=== PATIENT | female | born 1995 | race Caucasian/White ===

== ENCOUNTER → 2017-09-01 18:53 | Outpatient (CLI) | payer OTHER, SELFPAY ==
[2017-09-01 20:43] LABS: Group B Strep DNA By PCR Negative (Negative); Internal Control PASS; Probe Check PASS; Specimen Processing Control PASS
== END ==
PROVIDERS: Family Provider Family Medicine; PCP Family Medicine; Visit Provider Obstetrics & Gynecology
DX: Z36.85 Encounter for antenatal screening for Streptococcus B (principal)
CPT/HCPCS: 87081; 87653

== ENCOUNTER 2017-10-03 17:15 | Inpatient (IN) | payer OTHER, SELFPAY ==
[2017-10-03 17:50] VITALS: BMI 27.9
[2017-10-03] MEDS: 0.9% Saline Lock 10 ML Syringe IV ×2 (18:10→22:55)
[2017-10-03] MEDS: miSOPROStol 25 MCG TABLET PO ×2 (18:40→22:55)
[2017-10-03 18:50] LABS: Hematocrit 41.5 % (37-47); Hemoglobin 14.5 g/dl (12.0-15.0); Mean Corp Hgb Conc 34.9 g/gl (32-36); Mean Corpuscular Hgb 32.9 pg (27.0-32.0); Mean Corpuscular Volume 94.1 fL (81-99); Mean Platelet Vol. 9.9 fl (6.2-12.0); Platelet Count 172 K/mm3 (150-450); RBC Distribution Width CV 13.1 % (11.6-14.6); RBC Distribution Width SD 44.8 fl (35.1-43.9); Red Blood Count 4.41 M/mm3 (4.2-5.4); White Blood Count 10.8 K/mm3 (4.4-11.0)
[2017-10-03 18:58] LABS: Scan Indicated on CBC? Y/N NO
[2017-10-04] MEDS: Acetaminophen 325 MG Tablet PO (01:53)
[2017-10-04] MEDS: Ondansetron 4 MG/2 ML Vial IV (01:53)
--- NOTE | 2017-10-04 02:19 | PCM.PN.BLA ---
Progress Note 41 wk induction EFM; 130-140s avg to increased variability. Accels to 170s Sleep cycles in 120s baseline . One variable decel to 80-90s less than 60 sec, with intermittent tracing at time. Intermittent tracing UCs q 3-4 min at times. irregular CX check at 0112: 1.5/50/-2 A/P: 41 wk Cytotec induction. Category I tracing. Continue induction. Plan AROM, Pitocin
[2017-10-04] MEDS: Lactated Ringers 1,000 ML 50 ML IV ×3 (04:22→09:12)
[2017-10-04] MEDS: fentaNYL-bupivacaine (epidural) 100 ML BAG EPIDURAL (06:16)
--- NOTE | 2017-10-04 07:15 | PCM.PN.BLA ---
Progress Note LABOR PROGRESS NOTE (rounded approx 0610) Comfortable w/ epidural and hoping to rest. AVSS Last cytotec at approx 11 pm EFM: 110-120s with periods of FHR in 130-140s avg variability. Accels to 160s UCs q 3 min at times, poor pickup CX: 6-7/70/-1 last RN check with michele insertion (just prior to 7 am) A/P: 41 wk induction. Cytotec. D/C cytotec. Pitocin order given for prn to maintain UCs.
[2017-10-04] MEDS: Oxytocin 30 units/NS 500 ml 30 UNITS/500 ML IV.SOLN IV (07:30)
[2017-10-04] MEDS: Oxytocin 30 units/NS 500 ml 30 UNITS/500 ML IV.SOLN 334 UNITS IV (09:37)
[2017-10-04] MEDS: Oxytocin 30 units/NS 500 ml 30 UNITS/500 ML IV.SOLN 167 UNITS IV (10:07)
[2017-10-04] MEDS: Ibuprofen 600 MG Tablet PO ×2 (13:37→21:41)
[2017-10-04] MEDS: Senna/Docusate Sodium 1 Tablet PO (15:57)
[2017-10-04] MEDS: Prenatal Vits Tablet 1 TABLET PO (15:58)
[2017-10-04 16:00] VITALS: BP 109/65; PULSE 83; RESP 16; TEMP 37.3
[2017-10-04] MEDS: Acetaminophen 500 MG Tablet 1000 MG PO (17:11)
--- NOTE | 2017-10-04 18:33 | PCM.OB.VAG ---
Vaginal Delivery Maternal Presentation: Medically Indicated Induction 40 6/7 wk induction, Cytotec to pitocin and AROM Method of Induction: Pitocin, Amniotomy, Cytotec Medical Reason for Induction: Post term Amniotic Membrane Rupture Type: Artificial Amniotic Fluid Description: Clear Final RAJNI: 09/27/17 Gestational age: 41 Weeks and 0 Days Date of Procedure: 10/04/17 Pre-Operative Diagnosis: 41 wk Post-Operative Diagnosis: Same Surgery/ Procedure Performed: Spontaneous Vaginal Delivery Type of Anesthesia: Epidural Description of Procedure: of a nesbitt viable male over vaginal and perineal lacerations. Head delivered BISMARK. Nuchal cord x one reduced at delivery. Shoulders delivered easily. Infant to maternal abdomen with spont vigorous cry. End stage meconium noted. OP and nares bulb suctioned after delivery prior to placing baby on abdomen. Delayed cord clamping: cord then clamped x two and cut. Routine cord gas for typing collected. exam: 3rd degree perineal laceration noted. Bilateral 2nd degree vaginal wall lacerations. Placenta delivered by spont expulsion, expression. 3V cord, normal appearing and intact with trailing membranes. Repair then initiated: RN held retractor to expose apex of vaginal wall lacerations. Repaired those with 3-0 Vicryl. 3rd degree perineal laceration repaired to hemostatic and intact with interrupted stitches of 3-0 chromic then 3-0 Vicryl to hemostatic and intact. EBL 400 cc due to lacerations Ray Maryjo counts correct x two Pt and tolerated delivery well. to recovery, stable condition. Presentation: Vertex, BISMARK Placental Delivery Description: Spontaneous, Expressed Placenta Disposition: [facility] Cord Vessel Description: 3 Vessels Nuchal Cord Compression: Without compression Cord Entanglement: Around neck x 1, loose Drain: Esparza to straight drain Estimated Blood Loss: 400 Infant A gender: Male (1 minute): 8 (5 minute): 9 Episiotomy Description: None Laceration: Vaginal Extension/lac, 2nd degree - perineum: 3rd degree lacerations. Bilateral vaginal sidewall lacerations (2nd deg) Medications given after delivery: IV Pitocin Complications: None
--- NOTE | 2017-10-04 18:41 | PCM.DCVAG ---
Discharge Diet: No Restrictions Discharge Activity: May Shower, May Take a Tub Bath May resume sexual activity in: 4-6 weeks Additional Activity Instructions:: Nothing in the vagina for 4-6 weeks. You may return to work/school in 6 weeks. Additional Instructions: If you experience any of the following, contact your healthcare provider. Bleeding that soaks a pad every hour for 2 hours Fever 100.4 or higher Unrelieved abdominal pain Problems urinating (including inability to urinate or burning while urinating). Visual changes Severe headache Flu-like symptoms Pain or redness in one of both of your breasts Pain, warmth, tenderness or swelling in your legs, especially the calf area Frequent nausea and vomiting Symptoms of depression or anxiety If you experience any of the following, call 911 or go to the nearest Emergency Room. Chest pain Problems breathing Seizure activity Partial or complete paralysis of a body part, slurred speech, weakness or drooping of the face, or a sudden inability to walk or hold your balance Allergies/Adverse Reactions: Allergies No Known Allergies Allergy (Verified 10/03/17 17:51) Medications to take at Discharge Vit Calc,Iron,Folic [ Vitamins] 1 tab PO DAILY 10/03/17 Orders to be completed after discharge: Electric breast pump Time Frame: 1 Year, Location: None Selected Please Follow Up With: Qiana Deluna MD - [phone] When: Call to make an appointment with your doctor in 6 weeks. Primary Care Physician: Paddy Scales [Primary Care Provider] - Proposed Discharge Date: 10/06/17
--- NOTE | 2017-10-04 18:42 | DCINST_ITS ---
Discharge Diet: No Restrictions Discharge Activity: May Shower, May Take a Tub Bath May resume sexual activity in: 4-6 weeks Additional Activity Instructions:: Nothing in the vagina for 4-6 weeks. You may return to work/school in 6 weeks. Additional Instructions: If you experience any of the following, contact your healthcare provider. * Bleeding that soaks a pad every hour for 2 hours * Fever 100.4 or higher * Unrelieved abdominal pain * Problems urinating (including inability to urinate or burning while urinating) . * Visual changes * Severe headache * Flu-like symptoms * Pain or redness in one of both of your breasts * Pain, warmth, tenderness or swelling in your legs, especially the calf area * Frequent nausea and vomiting * Symptoms of depression or anxiety If you experience any of the following, call 911 or go to the nearest Emergency Room. * Chest pain * Problems breathing * Seizure activity * Partial or complete paralysis of a body part, slurred speech, weakness or drooping of the face, or a sudden inability to walk or hold your balance Allergies/Adverse Reactions: Allergies No Known Allergies Allergy (Verified 10/03/17 17:51) Medications to take at Discharge Vit Calc,Iron,Folic [ Vitamins] 1 tab PO DAILY 10/03/17 Orders to be completed after discharge: Electric breast pump Time Frame: 1 Year, Location: None Selected Please Follow Up With: Qiana Deluna MD - [phone] When: Call to make an appointment with your doctor in 6 weeks. Primary Care Physician: Paddy Scales [Primary Care Provider] - Proposed Discharge Date: 10/06/17
[2017-10-04 20:00] VITALS: BP 117/74; PULSE 82; RESP 16; TEMP 36.9
[2017-10-05 01:20] VITALS: BP 104/68; PULSE 79; RESP 16; TEMP 36.6
[2017-10-05] MEDS: Acetaminophen 500 MG Tablet 1000 MG PO ×2 (01:22→11:50)
[2017-10-05] MEDS: Senna/Docusate Sodium 1 Tablet PO ×3 (01:23→21:41)
[2017-10-05 05:55] VITALS: BP 107/69; PULSE 62; RESP 16; TEMP 36.8
--- NOTE | 2017-10-05 07:11 | PCM.PN.OB ---
Subjective: PPD#1 with 3rd deg laceration Doing well. States minimal bleeding, much less than yesterday morning. breast feeding well. No concerns voiced. Starting to get a little more painful at bottom. - Physical Exam General: Alert, Oriented x3, Cooperative, No apparent distress HEENT: Atraumatic Neck: Supple Abdomen: Soft - Fundus firm NT 2-3 cm inferior to umbilicus Extremities: No edema Psych/Mental Status: Normal Affect Vital Signs Temp Pulse Resp BP 97.8 F 79 16 104/68 10/05/17 01:20 10/05/17 01:20 10/05/17 01:20 10/05/17 01:20 Oxygen Delivery Method Room Air Weight: 69.3 kg Body Mass Index (BMI) 27.9 Intake and Output for Last 24 Hours 10/03/17 10/04/17 10/05/17 23:59 23:59 23:59 Intake Total 3260 / 3260 Output Total 1625 / 1625 Balance 1635 / 1635 Laboratory Tests Past 24 Hrs 10/04/17 15:50 Screen NEGATIVE Baby's Blood Type O POSITIVE Baby's FORTUNATO NEGATIVE Medical Necessity - Tobacco Use Smoking Status: Never smoker Assessment/Plan PPD#1 , 3rd degree laceration Stable . Continue routine care.
[2017-10-05 07:45] VITALS: BP 105/65; PULSE 73; RESP 18; TEMP 36.6; O2SAT 98
[2017-10-05] MEDS: Ibuprofen 600 MG Tablet PO ×2 (08:10→20:17)
[2017-10-05] MEDS: Prenatal Vits Tablet 1 TABLET PO (11:47)
[2017-10-05 14:30] VITALS: BP 97/67; PULSE 68; RESP 16; TEMP 37.2; O2SAT 98
[2017-10-05 20:05] VITALS: BP 112/75; PULSE 87; RESP 16; TEMP 36.4; O2SAT 98
[2017-10-06] MEDS: Acetaminophen 500 MG Tablet 1000 MG PO (00:14)
[2017-10-06 02:32] VITALS: BP 103/65; PULSE 70; RESP 16; TEMP 36.5; O2SAT 99
[2017-10-06] MEDS: Ibuprofen 600 MG Tablet PO (05:41)
--- NOTE | 2017-10-06 07:40 | PCM.PN.OB ---
Subjective: PPD#2 Induction of labor 40 6/7 to 41 wk. with 3rd degree Doing well. Able to rest overnight. Some pressure at perineum, but nothing bad. Notes more discomfort with cramping, nursing. - Physical Exam General: Alert, Oriented x3, Cooperative, No apparent distress HEENT: Atraumatic Neck: Supple Abdomen: Soft - Fundus firm NT inferior to umbilicus Neurological: Cranial nerves II-XII grossly intact Psych/Mental Status: Normal Affect Vital Signs Temp Pulse Resp BP Pulse Ox 97.7 F L 70 16 103/65 99 10/06/17 02:32 10/06/17 02:32 10/06/17 02:32 10/06/17 02:32 10/06/17 02:32 Oxygen Delivery Method Room Air Weight: 69.3 kg Body Mass Index (BMI) 27.9 Intake and Output for Last 24 Hours 10/04/17 10/05/17 10/06/17 23:59 23:59 23:59 Intake Total 3260 / 3260 Output Total 1625 / 1625 Balance 1635 / 1635 Medical Necessity - Tobacco Use Smoking Status: Never smoker Assessment/Plan PPD#2 , 3rd degree laceration Stable . dischg home today. RTO in 6 wk for pp check, prn sooner.
--- NOTE | 2017-10-06 07:44 | PCM.DC.SUM ---
Discharge Date and Diagnosis Date of Admission: 10/03/17 - 41 wk induction Date of Discharge: 10/06/17 - S/P 3rd deg laceration Hospital Course and Treatment Procedures: - - Induction of labor: cytotect, AROM Pitocin. Summary of Care Provided: The patient is a 22 year old female presents for induction of labor on 10/03/18 at 41 wk EGA. Cytotec induction, to AROM and pitocin resulted in with third degree vaginal laceration. course uneventful and home on PPD#2 Discharge Diet: No Restrictions Discharge Activity: May Shower, May Take a Tub Bath May resume sexual activity in: 4-6 weeks Additional Activity Instructions:: Nothing in the vagina for 4-6 weeks. You may return to work/school in 6 weeks. Home Medications: Medications to take at Discharge Vit Calc,Iron,Folic [ Vitamins] 1 tab PO DAILY 10/03/17 Other Amb Orders: Electric breast pump Time Frame: 1 Year, Location: None Selected Primary Care Physician: Paddy Scales [Primary Care Provider] - Please Follow Up With: Qiana Deluna MD - [phone] Medical Necessity - Tobacco Use Smoking Status: Never smoker Meaningful Use Info Meaningful Use Diagnoses (Choose all that apply): None applicable
[2017-10-06 09:00] VITALS: BP 102/63; PULSE 81; RESP 20; TEMP 37.3; O2SAT 98
[2017-10-06] MEDS: Senna/Docusate Sodium 1 Tablet PO (10:36)
[2017-10-06] MEDS: Prenatal Vits Tablet 1 TABLET PO (12:46)
== END 2017-10-06 14:00 | disposition home or self-care (01) | DRG 775 ==
PROVIDERS: Admitting Provider Obstetrics & Gynecology; Family Provider Family Medicine; PCP Family Medicine; Visit Provider Obstetrics & Gynecology
DX: O48.0 Post-term pregnancy (principal); O70.20 Third degree perineal laceration during delivery, unspecified; Z37.0 Single live birth; O69.81X0 Labor and delivery complicated by cord around neck, without compression, not applicable or unspecified; O77.0 Labor and delivery complicated by meconium in amniotic fluid; Z3A.41 41 weeks gestation of pregnancy
CPT/HCPCS: 59025; 59050; 85027; 85461; 86850; 86900; 86901; 90384; 99218; J7120; A4216; G0378; J2405; J2790

== ENCOUNTER 2017-10-07 11:30 | Outpatient (CLI) | payer OTHER, SELFPAY | END 2017-10-07 13:00 | disposition home or self-care (01) | LOC: WPOUT 11:40 → WP 11:40 | PROVIDERS: Family Provider Family Medicine; PCP Family Medicine; Visit Provider Obstetrics & Gynecology | DX: O92.70 Unspecified disorders of lactation (principal) | CPT/HCPCS: 96152 ==

== ENCOUNTER 2017-10-10 18:28 | Outpatient (CLI) | payer OTHER, SELFPAY | END 2017-10-10 19:42 | disposition home or self-care (01) | LOC: WPOUT 18:51 → WP 18:52 | PROVIDERS: Family Provider Family Medicine; PCP Family Medicine; Visit Provider Obstetrics & Gynecology | DX: Z39.1 Encounter for care and examination of lactating mother (principal) | CPT/HCPCS: 96152 ==

== ENCOUNTER → 2018-11-24 16:34 | Outpatient (CLI) | payer BC, SELFPAY ==
[2018-11-24 18:29] LABS: Chlamydia Trachomatis by PCR Negative (Negative); Neisserai gonorrhoeae by PCR Negative (Negative); Probe Check PASS; Sample Adequacy Control PASS; Specimen Processing Control PASS
[2018-11-29 11:34] LABS: HPV Reflexed? NOT INDICATED
== END ==
PROVIDERS: Family Provider Family Medicine; PCP Family Medicine; Referring Provider Obstetrics & Gynecology; Visit Provider Obstetrics & Gynecology
DX: Z12.4 Encounter for screening for malignant neoplasm of cervix (principal); Z11.3 Encounter for screening for infections with a predominantly sexual mode of transmission
CPT/HCPCS: 87491; 87591; 88175; G0145

== ENCOUNTER → 2018-12-15 15:19 | Outpatient (CLI) | payer BC, SELFPAY ==
[2018-12-15 17:18] LABS: Absolute Lymphocyte Count 2.14 X10^3/ul (0.83-4.51); Absolute Neutrophil Count 4.7 X10^3/uL (2.0-7.7); Basophil# 0.02 X10^3/uL; Basophil% 0.3 % (0-1); Eosinophil# 0.05 X10^3/uL; Eosinophils% 0.7 % (0-5); Hematocrit 40.4 % (37-47); Hemoglobin 14.4 g/dl (12.0-15.0); Lymphocyte # 2.14 X10^3/ul (4.0); Lymphocyte % 29.2 % (19-41); Mean Corp Hgb Conc 35.6 g/gl (32-36); Mean Corpuscular Hgb 31.3 pg (27.0-32.0); Mean Corpuscular Volume 87.8 fL (81-99); Monocyte% 5.4 % (0-10); Neutrophil # 4.73 X10^3/uL (2.7-7.7); Neutrophil % 64.4 % (47-70); Platelet Count 196 K/mm3 (150-450); RBC Distribution Width CV 11.8 % (11.6-14.6); RBC Distribution Width SD 37.6 fl (35.1-43.9); White Blood Count 7.3 K/mm3 (4.4-11.0)
[2018-12-15 17:21] LABS: POSITIVE COUNT NO; POSITIVE DIFFERENTIAL NO; POSITIVE MORPHOLOGY NO
[2018-12-15 17:29] LABS: Color, Urine Yellow (Yellow); Glucose, Dipstick Normal (Normal); Ketone-Dipstick 5 mg/dl (Negative); Leukocyte Esterase-Dipstick 100 /ul (Negative); Nitrite-Dipstick Negative (Negative); Occult Blood-Urine 10 /ul (Negative); Protein-Dipstick Negative (Negative); Specific Gravity, Urine 1.025 (1.002-1.030); Thyroid Stim Hormone (TSH) 0.85 uIU/mL (0.358-3.74); Urine Bilirubin Dipstick Negative (Negative); Urine Clarity Sl. Cloudy (Clear); Urine Urobilinogen Normal (Normal)
[2018-12-18 10:10] LABS: HIV - WCH Non-Reactive (Nonreactive); Hepatitis B Surface Antigen Non-Reactive (Nonreactive); Hepatitis C Antibody Non-Reactive (Nonreactive); Rubella IgG 35.7 IU/mL
[2018-12-22 05:48] LABS: Prenatal RPR NONREACTIVE (NONREACTIVE)
== END ==
PROVIDERS: Visit Provider Obstetrics & Gynecology
DX: Z34.81 Encounter for supervision of other normal pregnancy, first trimester (principal)
CPT/HCPCS: 36415; 81002; 84443; 85025; 86703; 86762; 86803; 87340

== ENCOUNTER → 2019-04-24 08:54 | Outpatient (CLI) | payer BC, SELFPAY ==
[2019-04-24 10:39] LABS: Hematocrit 36.1 % (37-47); Hemoglobin 12.2 g/dL (12.0-15.0); Mean Corp Hgb Conc 33.8 g/dL (32-36); Mean Corpuscular Hgb 33.2 pg (27.0-32.0); Mean Corpuscular Volume 98.1 fL (81-99); Mean Platelet Vol. 10.4 fl (6.2-12.0); Platelet Count 150 K/mm3 (150-450); RBC Distribution Width CV 12.8 % (11.6-14.6); RBC Distribution Width SD 45.6 fl (35.1-43.9); Red Blood Count 3.68 M/mm3 (4.2-5.4); White Blood Count 7.5 K/mm3 (4.4-11.0)
[2019-04-24 10:45] LABS: Glucose Challenge Gest 1H 50g 81 mg/dL (70-140)
== END ==
PROVIDERS: Visit Provider Obstetrics & Gynecology
DX: Z34.83 Encounter for supervision of other normal pregnancy, third trimester (principal)
CPT/HCPCS: 36415; 82950; 85027; 86850

== ENCOUNTER → 2019-06-28 16:30 | Outpatient (CLI) | payer BC, SELFPAY | PROVIDERS: Visit Provider Advanced Practice Midwife | DX: Z36.85 Encounter for antenatal screening for Streptococcus B (principal) | CPT/HCPCS: 87081 ==

== ENCOUNTER 2019-07-06 22:50 | Inpatient (IN) | payer BC, SELFPAY ==
[2019-07-06] MEDS: Lactated Ringers 1,000 ML 50 ML IV (23:20)
[2019-07-06] MEDS: Lactated Ringers 500 ML 999 ML IV (23:25)
[2019-07-06 23:28] VITALS: BMI 26.3
[2019-07-06 23:46] LABS: Absolute Neutrophil Count 7.9 X10^3/uL (2.0-7.7); Basophil# 0.03 X10^3/uL; Basophil% 0.3 % (0-1); Eosinophil# 0.04 X10^3/uL; Eosinophils% 0.4 % (0-5); Hematocrit 36.7 % (37-47); Hemoglobin 12.9 g/dL (12.0-15.0); Lymphocyte % 21.6 % (19-41); Mean Corp Hgb Conc 35.1 g/dL (32-36); Mean Corpuscular Hgb 32.7 pg (27.0-32.0); Mean Corpuscular Volume 92.9 fL (81-99); Mean Platelet Vol. 10.5 fl (6.2-12.0); Monocyte% 6.3 % (0-10); NRBC Flagged by Analyzer 0 % (0-5); Platelet Count 181 K/mm3 (150-450); RBC Distribution Width SD 40.2 fl (35.1-43.9); Red Blood Count 3.95 M/mm3 (4.2-5.4); White Blood Count 11.1 K/mm3 (4.4-11.0)
--- NOTE | 2019-07-06 23:55 | PCM.HP.OB ---
- Problem List (1) 38 weeks gestation of Status: Acute History Date of Admission: 07/06/19 - 41 wk induction Final RAJNI: 07/17/19 Final RAJNI Source: US <20 weeks Gestational age: 38 Weeks and 4 Days History of this : This is a 24 year-old, G [2], P [1], at 38 weeks gestational age. Allergies No Known Allergies Allergy (Verified 07/06/19 23:43) Home Medications: Home Medications Vit Calc,Iron,Folic [ Vitamins] 1 tab PO DAILY 10/03/17 Smoking Status: Never smoker Alcohol: None Number of Fetus(es): 1 NST - FHR Rate Baby A Baseline: 135 Variability:: Moderate Accelerations:: 15 x 15 Decelerations:: None NST Reactive:: Yes FHR Category:: Category I Uterine Activity:: Q3-5 min History Past Pregnancies: Past Pregnancies Delivery Date Name GA/ Weeks Outcome Route Wt Infant Sex Labor Length Anesthesia Delivery Location Provider FOB 10/04/17 41 viable vag 7.11 M 8 epidural [facility] same Labs: Mom's Labs & Results 07/06/19 07/06/19 07/06/19 23:20 23:20 23:20 WBC 11.1 H RBC 3.95 L Hgb 12.9 Hct 36.7 L MCV 92.9 MCH 32.7 H MCHC 35.1 RDW Std Deviation 40.2 RDW Coeff of Chloe 12.0 Plt Count 181 MPV 10.5 Immature Gran % (Auto) 0.400 Neut % (Auto) 71.0 H Lymph % (Auto) 21.6 Traverse % (Auto) 6.3 Eos % (Auto) 0.4 Baso % (Auto) 0.3 Absolute Neuts (auto) 7.9 H Absolute Lymphs (auto) 2.40 Nucleated RBC % 0 Blood Type O NEGATIVE Antibody Screen TNP NEGATIVE Course Did the patient receive Yes care? Labs Blood Type: O RH: NEGATIVE RPR/VDRL/Syphilis Nonreactive Rubella status Immune HbSAg Negative Date Done: 12/15/18 Chlamydia Negative Gonorrhea Negative HIV/AIDS Non-Reactive Group B Strep: Negative Current Obstetrical History Gestational Diabetes No Incompetent Cervix No Infertility No IUGR No Macrosomia No Hypertension/Pre-eclampsia No Placenta Previa/Abruption No PTL/PROM No Uterine anomaly No Oligohydramnios No Polyhydramnios No Multiple gestation No Past Medical History Asthma No Diabetes No Hypertension No Heart disease No Mitral valve prolapse No Neurologic/Seizure disorder/ No Migraines Kidney disease No Liver disease No Varicosities No Clotting disorders/Hx of DVT No Thyroid Dysfunction No Other medical diseases No Psychiatric disorders No Major trauma No Abnormal PAP smear No Sleep apnea No Mammogram in the last 2 years No Social History Marital Status: Alleged father Akbar Sesay Hx Smoking No Smoking Status Never smoker Expected Infant Delivery Method: Spontaneous Vaginal Number of Visits: 10 Review of Systems Constitutional: Denies: Chills, Fever, Weight Change HEENT: Denies: Head Aches, Sinus Congestion, Sinus Drainage Cardiovascular: Denies: Chest Pain, Palpitations Respiratory: Denies: Cough, Shortness of breath at rest, Sputum production Gastrointestinal: Denies: Abdominal Pain, Nausea, Vomiting Genitourinary: Denies: Dysuria Musculoskeletal: Denies: Joint Pain, Joint Tenderness Skin: Denies: Rash, Wounds Neurological: Denies: Numbness, Tingling, Focal weakness Psychiatric: Denies: Anxiety, Depression, Homicidal Ideations, Suicidal Ideations Hematologic/ Lymphatic: Denies: Easy Bruising, Easy Bleeding Physical Exam General: Alert, Oriented x3, No apparent distress HEENT: Atraumatic, Normocephalic. Negative for: Thyromegaly, Lymphadenopathy Cardiovascular: Regular rate, Regular Rhythm Lungs: Clear to auscultation Abdomen: Bowel Sounds Present, Gravid Neurological: Deep Tendon Reflexes 2+/4 and Symmetrical, Neuro grossly intact COMPLIANCE REVIEW OFFICER: Normal external genitalia. Negative for: Vulvar lesions Estimated gestational size: Appropriate for gestational size Presentation: Cephalic Cervix Dilation (cm): 5 - per RN Station: -2 Effacement (%): 50 Assessment/Plan All Active Problems 38 weeks gestation of (Acute) A: This is a 24 year-old, G [2], P [1], at 38 weeks gestational age. FHR baseline 135, + accels, - decels, moderate variability, reactive Category I tracing UC Q3-5 minutes SVE 5/50/-3 P: Admit for active labor Epidural for pain management Expect
[2019-07-07] MEDS: fentaNYL-bupivacaine (epidural) 100 ML BAG EPIDURAL (00:45)
[2019-07-07] MEDS: Oxytocin 30 units/NS 500 ml 30 UNITS/500 ML IV.SOLN 334 UNITS IV (04:10)
--- NOTE | 2019-07-07 05:29 | PCM.OPRPT ---
Problem List (1) 38 weeks gestation of Status: Acute Vaginal Delivery Maternal Presentation: Active Labor Amniotic Membrane Rupture Type: Artificial - at complete Rupture of Membrane time: 334 Amniotic Fluid Description: Clear Final RAJNI: 07/17/19 Final RAJNI Source: US <20 weeks Gestational age: 38 Weeks and 4 Days Date of Procedure: 07/07/19 Pre-Operative Diagnosis: 38 weeks gestation/labor Post-Operative Diagnosis: S/P Surgery/ Procedure Performed: Spontaneous Vaginal Delivery Type of Anesthesia: Epidural Description of Procedure: Called to delivery when patient 10/100/0 station with bulging bag of fluid. After discussion AROM with clear fluid. Pushed well with epidural in place. Delivered viable male OA to ABRAHAM, Apgars 8/9. 2nd degree vaginal extension/perineal laceration repaired with a 3.0 vicryl and a 3.0 rapide. EBL 150. All counts correct with RN x2. Presentation: Vertex, BARAHAM Placental Delivery Description: Spontaneous Placenta Disposition: [facility] Cord Vessel Description: 3 Vessels Cord Entanglement: None Estimated Blood Loss: 150 A gender: Male (1 minute): 8 (5 minute): 9 Episiotomy Description: None Laceration: Perineal Extension/lac, Vaginal Extension/lac, 2nd degree Medications given after delivery: IV Pitocin
--- NOTE | 2019-07-07 05:35 | DCINST_ITS ---
Discharge Diet: No Restrictions Discharge Activity: Return to Normal Activity, May not drive while taking narcotic pain medications., May Shower May resume sexual activity in: - - One week after bleeding has stopped and laceration heals Call your doctor if your incision/area has: Continuous Slow Oozing, Sudden Increased Bleeding, Increased Pain/ Swelling, Increased Redness, Foul Smelling Discharge Additional Instructions: If you experience any of the following, contact your healthcare provider. * Bleeding that soaks a pad every hour for 2 hours * Fever 100.4 or higher * Unrelieved incision or abdominal pain * Swelling, redness, discharge or bleeding from your incision or episiotomy site * Your incision begins to separate * Problems urinating (including inability to urinate or burning while urinating). * Visual changes * Severe headache * Flu-like symptoms * Pain or redness in one of both of your breasts * Pain, warmth, tenderness or swelling in your legs, especially the calf area * Frequent nausea and vomiting * Symptoms of depression or anxiety If you experience any of the following, call 911 or go to the nearest Emergency Room. * Chest pain * Problems breathing * Seizure activity * Partial or complete paralysis of a body part, slurred speech, weakness or drooping of the face, or a sudden inability to walk or hold your balance Allergies/Adverse Reactions: Allergies No Known Allergies Allergy (Verified 07/06/19 23:43) Medications to take at Discharge Vit Calc,Iron,Folic [ Vitamins] 1 tab PO DAILY 10/03/17 Please Follow Up With: Roseline Maria CNM When: Call to make an appointment with your doctor in 6 weeks. If you have signs of depression please call for a 2 week follow up. Test Results: Test results from this visit will be discussed in further detail at your follow- up appointment, if applicable.
--- NOTE | 2019-07-07 05:35 | PCM.DCVAG ---
Discharge Diet: No Restrictions Discharge Activity: Return to Normal Activity, May not drive while taking narcotic pain medications., May Shower May resume sexual activity in: - - One week after bleeding has stopped and laceration heals Call your doctor if your incision/area has: Continuous Slow Oozing, Sudden Increased Bleeding, Increased Pain/ Swelling, Increased Redness, Foul Smelling Discharge Additional Instructions: If you experience any of the following, contact your healthcare provider. Bleeding that soaks a pad every hour for 2 hours Fever 100.4 or higher Unrelieved incision or abdominal pain Swelling, redness, discharge or bleeding from your incision or episiotomy site Your incision begins to separate Problems urinating (including inability to urinate or burning while urinating). Visual changes Severe headache Flu-like symptoms Pain or redness in one of both of your breasts Pain, warmth, tenderness or swelling in your legs, especially the calf area Frequent nausea and vomiting Symptoms of depression or anxiety If you experience any of the following, call 911 or go to the nearest Emergency Room. Chest pain Problems breathing Seizure activity Partial or complete paralysis of a body part, slurred speech, weakness or drooping of the face, or a sudden inability to walk or hold your balance Allergies/Adverse Reactions: Allergies No Known Allergies Allergy (Verified 07/06/19 23:43) Medications to take at Discharge Vit Calc,Iron,Folic [ Vitamins] 1 tab PO DAILY 10/03/17 Please Follow Up With: Roseline Maria CNM When: Call to make an appointment with your doctor in 6 weeks. If you have signs of depression please call for a 2 week follow up. Test Results: Test results from this visit will be discussed in further detail at your follow-up appointment, if applicable.
[2019-07-07] MEDS: Ibuprofen 600 MG Tablet PO ×3 (06:47→19:55)
[2019-07-07 08:00] VITALS: BP 102/68; PULSE 87; RESP 16; TEMP 37.1
[2019-07-07 12:15] VITALS: BP 105/71; PULSE 74; RESP 16; TEMP 36.9
[2019-07-07 19:56] VITALS: BP 102/59; PULSE 84; RESP 14; TEMP 36.6; O2SAT 95
[2019-07-07] MEDS: Acetaminophen 500 MG Tablet 1000 MG PO (20:48)
[2019-07-07 23:14] VITALS: BP 106/63; PULSE 68; RESP 12; TEMP 36.6
[2019-07-08] MEDS: Ibuprofen 600 MG Tablet PO ×2 (02:07→11:04)
[2019-07-08 04:08] VITALS: BP 101/63; PULSE 68; RESP 16; TEMP 36.5
[2019-07-08 08:21] VITALS: BP 105/67; PULSE 75; RESP 16; TEMP 36.6; O2SAT 96
[2019-07-08] MEDS: Acetaminophen 500 MG Tablet 1000 MG PO (08:28)
--- NOTE | 2019-07-08 09:40 | PCM.DC.SUM ---
Discharge Date and Diagnosis - Problem List Patient Problems: Active and Suspected Problems 38 weeks gestation of (Acute) Date of Admission: 07/06/19 - 41 wk induction Date of Discharge: 07/08/19 - Primary Discharge Diagnosis Active and Suspected Problems 38 weeks gestation of (Acute) Hospital Course and Treatment Summary of Care Provided: The patient is a 24 year old F [] Patient Problems: Active and Suspected Problems 38 weeks gestation of (Acute) Subjective: Feeling well with mild cramps, but Motrin helping. A little swelling vaginally, but is relieved with ice. infant male well. No concerns. Wants to D/C today. Objective: VSS. Fundus u/1 firm midline. Lochia rubra moderate, normal course. male on right breast. No hx of PPD. Hypoactive bowels. Encouraged at ambulation at home, increase fiber and fluids, and may take OTC stool softener. - Physical Exam Vitals/I&O's: Vital Signs Temp Pulse Resp BP Pulse Ox 97.8 F 75 16 105/67 96 07/08/19 08:21 07/08/19 08:21 07/08/19 08:21 07/08/19 08:21 07/08/19 08:21 Oxygen Delivery Method Room Air Weight: 65.317 kg Body Mass Index (BMI) 26.3 Intake and Output for Last 24 Hours 07/06/19 07/07/19 07/08/19 23:59 23:59 23:59 Intake Total 4.17 / 504.17 1833.33 / 1833.33 Output Total 2200 / 2200 Balance 4.17 / 504.17 -366.67 / -366.67 General: Alert, Oriented x3, Cooperative HEENT: Atraumatic, PERRLA, EOMI, Normocephalic Neck: Supple, No JVD, Negative Carotid Bruits Lungs: Clear to auscultation, Normal air movement Cardiovascular: Regular rate, No murmurs Abdomen: Bowel Sounds Present, Soft, Non Tender, Hypoactive Bowel Sounds Extremities: No edema, Capillary Refill Less than 3 Seconds, - - fundus u/1 Skin: No rashes, No breakdown Musculoskeletal: No Tenderness to Palpation of Joints or Extremities Neurological: Cranial nerves II-XII grossly intact Psych/Mental Status: Normal Affect, Appropriate Laboratory Results 07/07/19 08:29: Screen NEGATIVE, Baby's Blood Type A POSITIVE, Baby's FORTUNATO NEGATIVE Current Medications Acetaminophen (Tylenol) 1,000 mg PO Q8H PRN PRN PRN Reason: Pain Score 1-3/10 Last Admin: 07/08/19 08:28 Dose: 1,000 mg Documented by: Bisacodyl (Dulcolax) 10 mg RECTAL UD PRN PRN Reason: If no BM Dibucaine (Dibucaine) 1 applic TOPICAL TID PRN PRN; Protocol PRN Reason: Discomfort Hydrocortisone (Hytone) 1 applic TOPICAL TID PRN PRN; Protocol PRN Reason: Discomfort Ibuprofen (Motrin) 600 mg PO Q6H PRN PRN PRN Reason: Pain Score 1-310 Last Admin: 07/08/19 02:07 Dose: 600 mg Documented by: Methylergonovine Maleate (Methergine) 0.2 mg IM X1 PRN PRN Reason: Excess bleeding/uterine atony Ondansetron HCl (Zofran) 4 mg IV Q4H PRN PRN PRN Reason: Nausea Senna/Docusate Sodium (Senokot-S, Cely-Colace) 1 - 2 tablet PO DAILY PRN PRN PRN Reason: Constipation Simethicone (Mylicon) 80 mg PO [facility]S PRN PRN Reason: Indigestion/Stomach pain Sodium Chloride () 5 - 15 ml IV UD PRN PRN Reason: SALINE FLUSH Discharge Diet: No Restrictions Discharge Activity: Return to Normal Activity, May not drive while taking narcotic pain medications., May Shower May resume sexual activity in: - - One week after bleeding has stopped and laceration heals Call your doctor if your incision/area has: Continuous Slow Oozing, Sudden Increased Bleeding, Increased Pain/ Swelling, Increased Redness, Foul Smelling Discharge Home Medications: Medications to take at Discharge Vit Calc,Iron,Folic [ Vitamins] 1 tab PO DAILY 10/03/17 Please Follow Up With: Roseline Maria CNM Medical Necessity - Tobacco Use Smoking Status: Never smoker Meaningful Use Info Meaningful Use Diagnoses (Choose all that apply): None applicable
[2019-07-08 11:05] VITALS: BP 108/63; PULSE 71; RESP 16; TEMP 36.3
== END 2019-07-08 13:00 | disposition home or self-care (01) | DRG 807 ==
PROVIDERS: Admitting Provider Obstetrics & Gynecology; Visit Provider Obstetrics & Gynecology
DX: O70.1 Second degree perineal laceration during delivery (principal); Z37.0 Single live birth; Z3A.38 38 weeks gestation of pregnancy
CPT/HCPCS: 59025; 59050; 85025; 85461; 86850; 86900; 86901; 90384; 99218; J7120; G0378; J2790

== ENCOUNTER → 2020-04-11 15:50 | Outpatient (CLI) | payer BC, SELFPAY ==
[2020-04-15 03:06] LABS: Chlamydia By Nucleic Acid AMP Negative (Negative)
[2020-04-15 12:04] LABS: Gonococcus By Nucleic Acid AMP Negative (Negative)
== END ==
PROVIDERS: Visit Provider Obstetrics & Gynecology
DX: Z11.3 Encounter for screening for infections with a predominantly sexual mode of transmission (principal)
CPT/HCPCS: 87491; 87591